=== PATIENT | male | born 1975 | race Caucasian/White ===

== ENCOUNTER → 2021-06-09 | Outpatient (CLI) | payer OTHER | LOC: ECHO 09:33 → NM 10:30 → ECHO 13:15 → NM 06-13 13:00 | DX: R94.31 Abnormal electrocardiogram [ECG] [EKG] (principal); I10 Essential (primary) hypertension; I49.9 Cardiac arrhythmia, unspecified; E66.01 Morbid (severe) obesity due to excess calories; R73.03 Prediabetes | CPT/HCPCS: ECHO; 78452; 93017; 93306; A9502 ==

== ENCOUNTER → 2022-02-17 | Day surgery (SDC) | payer OTHER ==
[~2022-02-17] MED LIST: VICTOZA 1818 MG/3 ML SC; ZESTRIL20 MG PO
== END | disposition home or self-care (01) ==
LOC: OR 05:58
DX: Z12.11 Encounter for screening for malignant neoplasm of colon (principal); D12.4 Benign neoplasm of descending colon; K57.30 Diverticulosis of large intestine without perforation or abscess without bleeding; I10 Essential (primary) hypertension; E66.01 Morbid (severe) obesity due to excess calories; G47.33 Obstructive sleep apnea (adult) (pediatric); R73.03 Prediabetes; Z86.010 Personal history of colon polyps; Z20.822 Contact with and (suspected) exposure to COVID-19
CPT/HCPCS: J2704; J7120